=== PATIENT | female | born 1965 | race Asian ===

== ENCOUNTER 2022-10-12 16:15 | Emergency (ER) | payer BC ==
[~2022-10-12] VITALS: Ht 175.3 cm; Wt 111.1 kg
[2022-10-12 16:47] LABS: PLATELET COUNT 261 K/uL (152-353)
[2022-10-12 16:52] LABS: POTASSIUM 3.5 mmol/L (3.6-5.2)
[2022-10-12 18:50] VITALS: BP 155/81; TEMP 98.2
== END 2022-10-12 18:50 | disposition home or self-care (01) ==
LOC: ED 16:15
PROVIDERS: Emergency Medicine
DX: S20.219A Contusion of unspecified front wall of thorax, initial encounter (principal); S40.012A Contusion of left shoulder, initial encounter; S40.011A Contusion of right shoulder, initial encounter; V49.59XA Passenger injured in collision with other motor vehicles in traffic accident, initial encounter
CPT/HCPCS: 36415; 80053; 85027; 96372; 99283; J1885